=== PATIENT | male | born 1995 | race Caucasian/White ===

== ENCOUNTER 2018-03-27 10:59 | Emergency (ER) | payer SELFPAY ==
[~2018-03-27] VITALS: Ht 170.2 cm; Wt 86.2 kg
[2018-03-27 11:05] VITALS: BP 152/77
[2018-03-27] MEDS ORDERED: NACL 0.9% 1,000 ML IV ONE (11:28)
[2018-03-27] MEDS ORDERED: METOCLOPRAMIDE 10 MG/2 ML INJ VIAL IVP ONE (11:30)
[2018-03-27] MEDS ORDERED: ONDANSETRON 4 MG/2 ML VIAL IVP ONE (11:30)
[2018-03-27] MEDS ORDERED: FAMOTIDINE 20 MG/2 ML VIAL IVP ONE (11:30)
[2018-03-27 12:06] LABS: APPEARANCE,URINE CLEAR (CLEAR); BILIRUBIN,URINE NEGATIVE (NEGATIVE); BLOOD, URINE NEGATIVE (NEGATIVE); COLOR,URINE YELLOW (YELLOW); LEUKOCYTE ESTERASE ,URINE NEGATIVE (NEGATIVE); NITRITE, URINE NEGATIVE (NEGATIVE); UGLUCOSE NEGATIVE (NEGATIVE)
[2018-03-27 12:07] LABS: BASOPHILS # (AUTO) 0.2 K/uL (0.00-0.22); EOSINOPHILS % (AUTO) 0.5 % (0.0-4.0); HEMATOCRIT 44.6 % (36-52); HEMOGLOBIN 15.2 g/dL (12.0-18.0); LYMPHOCYTES # (AUTO) 1.1 K/uL (2.0-11.5); MEAN CORPUSCULAR HEMOGLOBIN 29 pg (27-31); MEAN CORPUSCULAR HGB CONC 34 g/dL (33-37); MEAN CORPUSCULAR VOLUME 86.2 fL (80-94); MONOCYTES # (AUTO) 0.4 K/uL (0.8-1.0); MONOCYTES % (AUTO) 4.7 % (1.7-9.3); NEUTROPHILS % (AUTO) 78.8 % (42.2-75.2); PLATELET COUNT (AUTO) 261 K/uL (140-450); RED BLOOD CELL COUNT(AUTO) 5.17 MIL/uL (4.20-6.10); RED CELL DISTRIBUTION WIDTH 13.2 % (11.6-13.7); WHITE BLOOD COUNT (AUTO) 7.6 K/uL (4.8-10.8)
[2018-03-27 12:15] LABS: RBC,URINE 0-5 (RARE) /HPF (0-5); URINE AMORPHOUS URATE 1+ /HPF (None Seen); WBC,URINE 0-5 (RARE) /HPF (0-5)
[2018-03-27] MEDS ORDERED: PHENYTOIN 1,000 MG in NACL 0.9% 100 ML IV ONE (12:15)
[2018-03-27] MEDS ORDERED: DEXAMETHASONE 10 MG/ML VIAL IVP ONE (12:15)
[2018-03-27 12:20] LABS: BARBITURATE, URINE NEG. ng/ml (NEG <=200); BENZODIAZEPINE, URINE NEG. ng/mL (NEG <=200); CANNABINOID, URINE POS. ng/mL (NEG <=50); COCAINE, URINE NEG. ng/mL (NEG <=300); OPIATE, URINE NEG. ng/mL (NEG <=2000); PHENCYCLIDINE SCREEN,URINE NEG. ng/mL (NEG <=25)
[2018-03-27 12:24] LABS: ALBUMIN 4.5 g/dL (3.4-5.0); ANION GAP 14.3 (8-16); CARBON DIOXIDE 27.8 mmol/L (21-32); CREATININE 0.9 mg/dL (0.7-1.3); POTASSIUM 4.1 mmol/L (3.5-5.1); TOTAL BILIRUBIN 0.3 mg/dL (0.0-1.0)
[2018-03-27] MEDS ORDERED: LORazepam 2 MG/ML VIAL IVP ONE (12:30)
[2018-03-27 12:40] VITALS: BP 138/78
== END 2018-03-27 12:40 | disposition home or self-care (01) ==
LOC: MED 10:59
DX: S09.90XA Unspecified injury of head, initial encounter (principal); R11.2 Nausea with vomiting, unspecified; H53.8 Other visual disturbances; Z91.19 Patient's noncompliance with other medical treatment and regimen; W19.XXXA Unspecified fall, initial encounter; Y93.89 Activity, other specified; Y92.89 Other specified places as the place of occurrence of the external cause; Y99.8 Other external cause status
CPT/HCPCS: 36415; 70450; 71045; 80053; 80305; 81001; 84484; 85025; 93005; 96361; 96374; 96375; 99285; G0482; J2060; J2405; J2765; J3490

== ENCOUNTER 2022-10-16 00:39 | Emergency (ER) | payer OTHER ==
[~2022-10-16] VITALS: Ht 175.3 cm; Wt 95.3 kg
[2022-10-16 00:43] VITALS: BP 144/95
--- NOTE | 2022-10-16 00:48 | NUR ---
TO BED 11 FROM TRIAGE
[2022-10-16] MEDS ORDERED: KETOROLAC 60 MG/2 ML VIAL IM ONE (00:50)
--- NOTE | 2022-10-16 00:51 | NUR ---
ZAIDA PRIEST ASSESSING PT
--- NOTE | 2022-10-16 00:51 | NUR ---
Patient lying in bed, A/Ox4, chest rise and fall symmetrical, no s/s of distress.
--- NOTE | 2022-10-16 00:52 | NUR ---
Dr. Taylor assessing patient.
[2022-10-16] MEDS ORDERED: IBUP-2213 PO (00:57)
[2022-10-16 01:00] VITALS: BP 119/85
== END 2022-10-16 01:03 | disposition home or self-care (01) ==
LOC: MED 00:39
DX: M25.532 Pain in left wrist (principal)
CPT/HCPCS: 99283; J1885